=== PATIENT | male | born 1995 | race African-American/Black ===

== ENCOUNTER 2019-01-10 10:46 | Emergency (ER) | payer SELFPAY ==
[~2019-01-10] VITALS: Ht 190.5 cm; Wt 80.0 kg
[2019-01-10] MEDS ORDERED: BACTRIM DS1 TAB PO (11:26)
[2019-01-10] MEDS ORDERED: CIPROFLOXACIN500 M1 PO (11:26)
[2019-01-10] MEDS ORDERED: NO HOME MEDS (11:55)
[2019-01-10 11:56] VITALS: BP 124/63
== END 2019-01-10 11:56 | disposition home or self-care (01) | DRG 605 ==
LOC: ED 10:46
DX: S91.332A Puncture wound without foreign body, left foot, initial encounter (principal); F17.210 Nicotine dependence, cigarettes, uncomplicated; W45.0XXA Nail entering through skin, initial encounter; Y92.410 Unspecified street and highway as the place of occurrence of the external cause